=== PATIENT | male | born 1970 | race Caucasian/White ===

== ENCOUNTER → 2023-11-26 06:23 | Day surgery (SDC) | payer OTHER, SELFPAY | LOC: GI 06:23 | PROVIDERS: ATTENDING PHYSICIAN Internal Medicine | DX: Z12.11 Encounter for screening for malignant neoplasm of colon (principal); D12.3 Benign neoplasm of transverse colon; D12.5 Benign neoplasm of sigmoid colon; D12.7 Benign neoplasm of rectosigmoid junction; K63.5 Polyp of colon; K29.70 Gastritis, unspecified, without bleeding; K22.89 Other specified disease of esophagus; Z86.010 Personal history of colon polyps; Z98.84 Bariatric surgery status | CPT/HCPCS: 45385; 45380; 43239; 88305 ==